=== PATIENT | male | born 1970 | race African-American/Black ===

== ENCOUNTER 2024-01-31 10:03 | Emergency (ER) | payer BC, SELFPAY ==
[2024-01-31 10:18] VITALS: BP 151/93; PULSE 73; RESP 16; TEMP 36.7; O2SAT 97
--- NOTE | 2024-01-31 10:48 | ED.WOUNDLAC ---
HPI - Wound/Laceration General Chief Complaint: Wound/Laceration Stated Complaint: left pinky finger lac Time Seen by Provider: 01/31/24 10:33 Source: patient, RN notes reviewed and old records reviewed Mode of arrival: ambulatory Limitations: no limitations History of Present Illness HPI narrative: 53 year old male who presents to [facility] care with complaints of laceration to his distal left 5th finger which occurred last night around 1929 when he was slicing vegetables. Patient reports that he has not been able to get the bleeding to stop despite use of taunt band-aide to wound. Patient reports no tinging or numbness to his [id number] finger with strong left radial pulse. Small amount of bleeding present to site.Patient reports that his tetanus is up to date. Onset (ago): day(s) (yesterday pm at 1930) Extremity Location: Left: hand (left distal 5th finger) Place: home Patient tetanus UTD: Yes Treatments prior to arrival: bandage and other (cleansed with soap and water) Related Data Home Medications Medication Instructions Recorded Confirmed atorvastatin 10 mg tablet mg 01/31/24 glyburide 5 mg tablet mg 01/31/24 metformin 500 mg tablet,extended mg PO 01/31/24 release 24 hr Allergies Allergy/AdvReac Type Severity Reaction Status Date / Time No Known Allergies Allergy Verified 08/01/19 08:59 Review of Systems Review of Systems: CONSTITUTIONAL: Denies fever, chills, or sweats. CARDIOVASCULAR: Denies chest pain, palpitations, or edema. RESPIRATORY: Denies cough or dyspnea. SKIN: Reports laceration to the distal left 5th finger tip no nail involvement MUSCULOSKELETAL: Denies musculoskeletal pain NEUROLOGIC: Denies numbness, or weakness. All systems reviewed & are unremarkable except as noted in HPI and below [facility] Past Medical History Medical History (Updated 02/01/24 @ 09:31 by Luz Elena Grimaldo NP) Clavicle fracture Diabetes Fracture of left lower leg ORIF Gastroesophageal reflux disease Hyperlipidemia Obesity IVET on CPAP Surgical History Surgical History H/O umbilical hernia repair Family History Family History Mother Diabetes mellitus Father Family history of malignant neoplasm of stomach Other Family history of cardiovascular disease Hypertension Social History Social History Smoking status: Former smoker Smoking end date: 09/05/10 Alcohol intake: current Alcohol use details: social Substance use type: does not use Living arrangements: with family Gender identity (if verbalized by the patient): Male Comments At time of signature, agree with nursing past medical, surgical, social and family history. There is no relevant family history pertinent to the presenting complaint Exam Narrative: GENERAL: Well-appearing, well-nourished, and in no acute distress. HEAD: Normocephalic, atraumatic. NECK: Supple.no lymphadenopathy CHEST: Clear to auscultation. No respiratory distress.SAO2 97% on room air HEART: Regular rate and rhythm. No murmur heard. Normal peripheral pulses. EXTREMITIES: Normal range of motion. No edema. SKIN: Warm, dry, no rash. Reports laceration to the left distal tip of left 5th finger linear with brisk capillary refill to nail bed and strong left radial pulse, full mobility of left 5th finger; see procedure note NEURO: No focal deficits. Alert and oriented x3. Course Course Level of Care: Express Care Visit Vital Signs Vital signs: Vital Signs Temperature 36.7 C 01/31/24 10:18 Pulse Rate 73 01/31/24 10:18 Respiratory Rate 16 01/31/24 10:18 Blood Pressure 151/93 H 01/31/24 10:18 Pulse Oximetry 97 01/31/24 10:18 Oxygen Delivery Room Air 01/31/24 10:18 Temperature 36.7 C 01/31/24 10:18 Pulse Rate 73 01/31/24 10:18 Respiratory Rate 16
== END 2024-01-31 11:51 | disposition home or self-care (01) ==
PROVIDERS: Emergency Provider Registered Nurse
DX: S61.217A Laceration without foreign body of left little finger without damage to nail, initial encounter (principal); W45.8XXA Other foreign body or object entering through skin, initial encounter; Y93.G9 Activity, other involving cooking and grilling; E11.9 Type 2 diabetes mellitus without complications; K21.9 Gastro-esophageal reflux disease without esophagitis; E78.5 Hyperlipidemia, unspecified; E66.9 Obesity, unspecified; G47.33 Obstructive sleep apnea (adult) (pediatric)
CPT/HCPCS: 12001; 99203; G0463